=== PATIENT | female | born 1995 | race American Indian/Alaskan Native ===

== ENCOUNTER 2022-01-01 11:11 | Emergency (ER) | payer SELFPAY ==
[2022-01-01 12:19] VITALS: BP 95/58
--- NOTE | 2022-01-01 14:14 | Event Note ---
ED Screening Note ED Screening Note: FLANK PAIN BILATERAL 1430 UA PENDING This initial assessment/diagnostic orders/clinical plan/treatment(s) is/are subject to change based on patients health status, clinical progression and re- assessment by fellow clinical providers in the ED. Further treatment and workup at subsequent clinical providers discretion. Patient/guardian urged not to elope from the ED as their condition may be serious if not clinically assessed and managed. Initial orders include: <JOSELINE SHARIF - Last Filed: 01/01/22 14:32> ED Screening Note: This initial assessment/diagnostic orders/clinical plan/treatment(s) is/are subject to change based on patients health status, clinical progression and re- assessment by fellow clinical providers in the ED. Further treatment and workup at subsequent clinical providers discretion. Patient/guardian urged not to elope from the ED as their condition may be serious if not clinically assessed and managed. Initial orders include: Patient eloped 2 days ago prior to being seen by provider. I reviewed patient's labs and UA consistent with infection when he treatment with antibiotic. I Call the number in the chart which belongs to her grandmother who provided patient's number at [phone]. I Spoke to her who states that she is unavailable at this time. She apparently has not visited another hospital since ER visit here 2 days ago. I provided the ER number and my name and instructed him to have her call me back to discuss her results. I explained that I would not be here tomorrow during the day. He states he will have her call back this evening. Patient called back at this time. States she is having some suprapubic and lower back pain. Intermittent fevers reported, and mild dysuria. Patient was encouraged to come back to the ER for further evaluation, physical exam, and to receive antibiotics for UTI. Patient is unable to come back tonight during my shift. I will have to leave patient's name and info with the charge nurse and triage nurse (to be passed onto neck shift) to expect her return to the department to try to expedite her ED evaluation once she arrives. Patient anticipates coming to the ED tomorrow morning <LOGAN OWEN C - Last Filed: 01/03/22 22:40>
[2022-01-01 15:01] LABS: HCG Qualitative,Urine Negative (Negative)
[2022-01-01 15:24] LABS: Mucus,Urine 3+ /HPF
[2022-01-01 16:26] LABS: Bilirubin,Urine Negative (Negative); Color,Urine Yellow (Yellow)
[2022-01-01 16:27] LABS: Blood,Urine Large (Negative); PH,Urine 6.5 (5.0-7.0)
== END 2022-01-01 16:04 | disposition left against medical advice (07) ==
LOC: ED 11:11
DX: R10.9 Unspecified abdominal pain (principal); R10.2 Pelvic and perineal pain; Z53.21 Procedure and treatment not carried out due to patient leaving prior to being seen by health care provider
CPT/HCPCS: 81001; 81025; 87086